=== PATIENT | male | born 1975 | race Caucasian/White ===

== ENCOUNTER 2019-04-12 17:51 | Emergency (ER) | payer MEDICAID, SELFPAY ==
[~2019-04-12] VITALS: Ht 188 cm; Wt 149.1 kg
--- NOTE | 2019-04-12 18:43 | NUR ---
PT REFUSING TO CHANGE INTO GOWN FOR US, PT STATES "I'M NOT DOING THAT, YOU CAN JUST LOOK AT MY LEG, I'LL JUST DEAL WITH THE PAIN AND LEAVE IF I HAVE TO DO THAT". PT OFFERED TWO GOWNS AND BLANKETS TO KEEP COVERED. PT STATES "NOPE, I'M LEAVING", PT EDUCATED THAT IT COULD BE LIFE THREATENING TO LEAVE WITH HIS OXYGEN LOW IT IS. PT STATES "I DON'T CARE, I'M GOING". TRIED TO REASON WITH PT BUT HE IS REQUESTING TO LEAVE, ASKED IF HE WOULD SPEAK WITH MD AND PT AGREED, MD NOTIFIED. MD TO SEE
--- NOTE | 2019-04-12 18:48 | NUR ---
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 PT STATES "YOU CAN LOOK AT MY BLOOD AND IF IT DOES'NT SHOW ANYTHING I'M GOING TO GO". PT EDUCATED ON NEED FOR US TO RULE OUT DVT AND POSSIBLE CT, PT STATES "I'M NOT DOING IT". NOTIFIED AGAIN.
[2019-04-12 18:59] LABS: ALANINE AMINOTRANSFERASE 48 U/L (12-78); ALBUMIN 3.6 g/dL (3.4-5.0); ANION GAP 2 mmol/L (5-15); BASOPHILS # (AUTO) 0.05 x10^3/uL (0-0.1); BASOPHILS % (AUTO) 1 % (0-1); CALCIUM 9.4 mg/dL (8.5-10.1); CHLORIDE 105 mmol/L (98-107); CREATININE 0.85 mg/dL (0.7-1.3); EOSINOPHILS # (AUTO) 0.45 x10^3/uL (0-0.4); EOSINOPHILS % (AUTO) 6 % (1-7); LYMPHOCYTES # (AUTO) 1.57 x10^3/uL (1-3.4); LYMPHOCYTES % (AUTO) 20 % (22-44); MD NO; MEAN CORPUSCULAR HGB CONC 32.7 g/dL (33.2-36.2); MEAN CORPUSCULAR VOLUME 88.5 fL (81-97); MEAN PLATELET VOLUME 8.3 fL (7.4-10.4); MONOCYTES # (AUTO) 0.47 x10^3/uL (0.2-0.8); MONOCYTES % (AUTO) 6 % (2-9); NEUTROPHILS # (AUTO) 5.14 x10^3/uL (1.8-6.8); NEUTROPHILS % (AUTO) 67 % (42-75); PLATELET COUNT 247 x10^3/uL (130-400); RED BLOOD COUNT 6.09 x10^6/uL (4.38-5.82); RED CELL DISTRIBUTION WIDTH 14.1 % (9.4-14.8)
[2019-04-12] MEDS ORDERED: SODIUM CHLORIDE 0.9% 1,000ML IVBOLUS ONE (19:00)
[2019-04-12] MEDS ORDERED: ONDANSETRON 2MG/ML, 2ML IVPush ONE (19:00)
[2019-04-12] MEDS ORDERED: MORPHINE SULFATE 4 MG/ML, 1ML IVPush PRN (19:00)
--- NOTE | 2019-04-12 19:02 | NUR ---
PT REFUSING IV AND CT SCAN. PT CHANGED INTO GOWN AND OK TO GET US ONLY AT THIS TIME.
[2019-04-12 19:03] LABS: ALKALINE PHOSPHATASE 113 U/L (45-117); BILIRUBIN,TOTAL 0.2 mg/dL (0.2-1.0); PROTHROMBIN TIME 10.5 Seconds (9.6-11.5); TOTAL PROTEIN 8.1 g/dL (6.4-8.2); TROPONIN I < 0.015 ng/mL (0.000-0.045)
--- NOTE | 2019-04-12 19:03 | NUR ---
Spoke with patient. Patient stated that he was not going to have a CTA completed due to the need for IV access. Patient did agree to wait for ultrasound. Patient given risk/complications r/t leaving the ER. Patient verbalized understanding. Patient has made serveral comments regarding leaving the ER, notified patient of elopment policy and patient verbalized understanding.
--- NOTE | 2019-04-12 19:18 | NUR ---
UPDATED MD REGARDING PATIENT'S DECISION TO REFUSE CTA. PATINET WILL HAVE ULTRASOUND COMPLETED. PATIENT WANT TO AMBULATE TO RESTROOM, TOLERATED WELL. PATIENT GIVEN BLANKETS AND COMFORT ITEMS.
--- NOTE | 2019-04-12 20:29 | NUR ---
PT REFUSED IV FOR CTA
[2019-04-12 20:43] VITALS: BP 144/87
--- NOTE | 2019-04-12 20:45 | NUR ---
patient wanted to leave, re-educated regarding plan of care. Patient wants to leave to "get fresh air", education given regarding elopement policy with no evidence of learning exhibited.
--- NOTE | 2019-04-12 21:08 | NUR ---
PATIENT IS LEAVING AMA; SIGNED AMA PAPERWORK. MD AWARE, WILL WRITE PATIENT PRESCRIPTION
== END 2019-04-12 21:16 | disposition left against medical advice (07) ==
LOC: ED 20:33
DX: I80.3 Phlebitis and thrombophlebitis of lower extremities, unspecified (principal); R09.02 Hypoxemia; F17.210 Nicotine dependence, cigarettes, uncomplicated
CPT/HCPCS: 36415; 71045; 80053; 83605; 83735; 83880; 84145; 84484; 85025; 85610; 85730; 87040; 93005; 93970; 99284; 99406